=== PATIENT | male | born 1970 | race Caucasian/White ===

== ENCOUNTER 2021-07-08 22:48 | Emergency (ER) | payer BC ==
[~2021-07-08] VITALS: Ht 165.1 cm; Wt 70.3 kg
[2021-07-08 23:15] VITALS: BP_SYST 142
--- NOTE | 2021-07-08 23:40 | NUR ---
Pt in bed and in gown. ready for MD evaluation
[2021-07-08] MEDS ORDERED: BACITRACIN 1 GM OINT TP ONE (23:45)
[2021-07-09 00:04] VITALS: BP_SYST 130
[2021-07-09] MEDS ORDERED: CEPH-548 PO (00:08)
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
--- NOTE | 2021-07-09 00:16 | NUR ---
Patient given written and verbal discharge instructions and verbalizes understanding. ER MD discussed with patient the results and treatment provided. Patient in stable condition. ID arm band removed. Patient educated on pain management and to follow up with PMD. Opportunity for questions provided and answered. AOX4 VSS NAD at this time Pt exited ED in stable gait
== END 2021-07-09 00:17 | disposition home or self-care (01) ==
LOC: SED 22:48
DX: T24.202A Burn of second degree of unspecified site of left lower limb, except ankle and foot, initial encounter (principal); X19.XXXA Contact with other heat and hot substances, initial encounter; Y93.89 Activity, other specified; Y92.89 Other specified places as the place of occurrence of the external cause; Y99.8 Other external cause status
CPT/HCPCS: 99283